=== PATIENT | male | born 1960 | race Caucasian/White ===

== ENCOUNTER → 2016-08-12 07:05 | Day surgery (SDC) | payer BC ==
--- NOTE | 2016-07-25 04:52 | HP ---
AMENDED REPORT FOR PHYSICIAN SIGNATURE - ESIGNED BEFORE ADJUSTMENT PREOPERATIVE HISTORY AND PHYSICAL: DATE OF SURGERY/ADMISSION: 08/12/16 DATE OF OFFICE VISIT/ENCOUNTER: 07/23/16 ATTENDING SURGEON: Cindy Edouard MD (dictated by OPAL Russo) PROCEDURE: Right long finger trigger finger release. CHIEF COMPLAINT: Right long finger triggering. HISTORY OF PRESENT ILLNESS: This is a 56-year-old male who is complaining of clicking, catching, and locking in his right middle finger that has been ongoing since summer. 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 He received a cortisone injection back in March 2016, which was helpful but recently has worn off. He is interested is pursuing surgical intervention at this time. PAST MEDICAL HISTORY: Pre-diabetes. PAST SURGICAL HISTORY: Oral surgery. MEDICATIONS: None. ALLERGIES: PENICILLIN causes hives. FAMILY MEDICAL HISTORY: Significant for lung disease. 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 He reports being a smoker; however, he is currently in the process of trying to quit. He says he has been 17 days without a cigarette; prior to that , he smoked a pack per day for the past 42 years. He does admit to smoking marijuana on occasion, and also reports alcohol intake approximately 6 pack per week. REVIEW OF SYSTEMS: General: Negative for fevers, chills, or night sweats. No known anesthesia problems. HEENT: Negative for headache, lightheadedness, or syncopal episodes. Integumentary: Negative for abrasions, lesions, or open wounds. Cardiothoracic: Negative for chest pain, palpitations, or edema. Negative for hypertension. Pulmonary: Negative for shortness of breath with exertion, chronic cough, or COPD. GI: Negative for nausea, vomiting, diarrhea , constipation, or GERD. : Negative for nocturia, urinary frequency, urgency , history of UTIs, or kidney problems. Musculoskeletal: Positive for current complaints. Negative for chronic or intermittent back pain or history of fractures. Neurological: Negative for paresthesias, numbness, history of seizures, stroke, or epilepsy. Endocrine: Positive for pre-diabetes, negative for thyroid issues. Hematologic: Negative for easy bruising, anemia, excessive bleeding, or history of DVT. Infectious Disease: Negative for history of MRSA, hepatitis C, or HIV. PHYSICAL EXAMINATION GENERAL: Well-developed, well-nourished, 56-year-old male in no acute distress. VITAL SIGNS: Height 5 feet 9 inches, weight 161 pounds, pulse rate 64, blood pressure 118/76. HEENT: Normocephalic, atraumatic. Pupils are equal, round, and reactive to light and accommodation. Extraocular movements are intact. NECK: Supple. No palpable lymph nodes. Throat is clear. CARDIOTHORACIC: Regular rate and rhythm. S1, S2. No murmurs, rubs, or gallops. No edema. PULMONARY: Lungs are clear to auscultation bilaterally. No wheezes, rales, or rhonchi. ABDOMEN: Positive bowel sounds, soft, and nontender. NEUROLOGIC: Alert and oriented x3. Cranial nerves II through XII are intact. Sensation to intact to light touch. MUSCULOSKELETAL: On exam of his right middle finger, there is tenderness to palpation at the A1 cesar. He has active triggering with flexion and extension. His range of motion is not restricted. Neurovascular function is intact. IMPRESSION: Right middle finger trigger finger. PLAN: The patient is scheduled to undergo a right long finger trigger finger release with Dr. Edouard on 08/12/16. He will return to the office 10 to 14 days postoperatively for followup and suture removal. A prescription for [place] was e- scribed to the patient's pharmacy for postoperative pain management. OPAL RUSSO [id number]/[facility] #: [id number] [facility]
[~2016-08-12 07:05] MED LIST: Buffered Lidocaine 1% SYR 3ML* 3 ML/SYR SYRINGE INTRADERM ONE; Buffered Lidocaine 1% SYR 3ML* 3 ML/SYR SYRINGE ONE; Lidocaine 1% INJ* 10 MG/ML 30 ML SDV ONE; Midazolam* 1 MG/ML 2 ML VIAL (2 MG) ONE; fentaNYL* 50 MCG/ML 2 ML VIAL (100 MCG VIAL) ONE
[2016-08-12 09:53] VITALS: BP 127/71
--- NOTE | 2016-08-13 00:07 | OP ---
DATE OF OPERATION: 08/12/16 [facility] DATE OF : 60 SURGEON: Dr. Edouard LABOR RELATIONS CONSULTANT: OPAL Russo. ANESTHESIOLOGIST: Mike White DO ANESTHESIA: Local MAC. PRE-OP DIAGNOSIS: Long finger trigger, right hand. POST- OP DIAGNOSIS: Long finger trigger, right hand. OPERATIVE PROCEDURE: Right long finger trigger release. ESTIMATED BLOOD LOSS: Zero. TOURNIQUET TIME: About 10 minutes. INDICATION FOR PROCEDURE: Omero is a 56-year-old male with locking and triggering of his right long finger. He has failed conservative treatment. He presents now for trigger finger release. DESCRIPTION OF PROCEDURE: The patient was brought to the operating room, was given a sedation anesthetic and a local infiltration of 10 cc of 1% plain lidocaine in the palm of his right hand. The skin of his right hand and forearm was prepped and draped in the usual sterile fashion. The hand and forearm were exsanguinated and the tourniquet elevated to 250 mmHg. A transverse incision was made centered over the A1 cesar of the right long finger. We dissected through the subcutaneous tissue down to the cesar, which was incised longitudinally, completely releasing the flexor tendons, which were in good condition with some mild tenosynovitis. The wound was irrigated and the skin edges reapproximated with 4-0 nylon suture. The wound was dressed with Xeroform, 4x4, Webril, and an Michael wrap. The patient tolerated the procedure well and was brought to the recovery room in good condition. [id number]/[facility] #: [id number] MTDD
== END | disposition home or self-care (01) ==
LOC: OREAST 07:05
PROVIDERS: ATTEND Orthopaedic Surgery
DX: M65.331 Trigger finger, right middle finger (principal); Z88.0 Allergy status to penicillin; Z79.82 Long term (current) use of aspirin; Z79.891 Long term (current) use of opiate analgesic; Z87.891 Personal history of nicotine dependence
CPT/HCPCS: J2250; J3010

== ENCOUNTER → 2019-09-08 05:37 | Emergency (ER) | payer BC ==
[~2019-09-08 05:37] MED LIST changes: -Buffered Lidocaine 1% SYR 3ML* 3 ML/SYR SYRINGE INTRADERM ONE; -Buffered Lidocaine 1% SYR 3ML* 3 ML/SYR SYRINGE ONE; +Indomethacin CAP* 25 MG CAP PO ONE; -Lidocaine 1% INJ* 10 MG/ML 30 ML SDV ONE; -Midazolam* 1 MG/ML 2 ML VIAL (2 MG) ONE; -fentaNYL* 50 MCG/ML 2 ML VIAL (100 MCG VIAL) ONE
--- NOTE | 2019-09-08 06:13 | ED ---
Lower Extremity - HPI Summary HPI Summary: Pt. is a 59 y.o male who presents to the ER for pain and swelling to right great toe that started today. Pt. denies any injuries or falls. Pt. states he has a hx of gout and symptoms are the same today. Pt. states he is usually treated with indomethacin and symptoms resolve. Pt. otherwise denies fever, chills, wounds, injury. Past hx of DM. Sxs are mild in severity. Touching area makes sxs worse. Rest improves sxs. Denies change in diet. - History of Current Complaint Chief Complaint: EDExtremityLower Stated Complaint: GOUT PER PT Time Seen by Provider: 09/08/19 05:53 Hx Obtained From: Patient Pain Intensity: 6 - Allergies/Home Medications Allergies/Adverse Reactions: Allergies Allergy/AdvReac Type Severity Reaction Status Date / Time MS Penicillins [Penicillins] Allergy Severe Rash Verified 09/08/19 05:40 ENVIRONMENTAL Allergy Intermediate STUFFINESS Uncoded 09/08/19 05:40 PMH/Surg Hx/FS Hx/Imm Hx Previously Healthy: Yes Endocrine/Hematology History: Reports: Hx Diabetes - Pre-diabetic a1c 6.5 Denies: Hx Thyroid Disease Cardiovascular History: Denies: Hx Hypertension Respiratory History: Denies: Hx Asthma, Hx Chronic Obstructive Pulmonary Disease (COPD) GI History: Denies: Hx Ulcer Sensory History: Reports: Hx Contacts or Glasses Denies: Hx Hearing Aid Opthamlomology History: Reports: Hx Contacts or Glasses Neurological History: Reports: Other Neuro Impairments/Disorders - HX GOUT - Cancer History Hx Chemotherapy: No - Surgical History Surgery Procedure, Year, and Place: SURGICAL REMOVED TEETH Hx Anesthesia Reactions: No Infectious Disease History: No Infectious Disease History: Denies: Hx Clostridium Difficile, Hx Hepatitis, Hx Human Immunodeficiency Virus (HIV), Hx of Known/Suspected MRSA, Hx Shingles, Hx Tuberculosis, Hx Known/ Suspected VRE, Hx Known/Suspected VRSA, History Other Infectious Disease, Traveled Outside the [place] in Last 30 Days - Family History Known Family History: Positive: Non-Contributory - Social History Occupation: Employed Full-time Lives: With Family Alcohol Use: Weekly Alcohol Amount: 6 pk a week Substance Use Type: Reports: Marijuana Substance Use Comment - Amount & Last Used: occassional Hx Tobacco Use: Yes Smoking Status (MU): Former Smoker Type: Cigarettes Amount Used/How Often: 1/2 PPD Length of Time of Smoking/Using Tobacco: 35+ years Review of Systems Constitutional: Negative Negative: Fever Positive: Other - Pain and swlling to right great toe Skin: Negative All Other Systems Reviewed And Are Negative: Yes Physical Exam Triage Information Reviewed: Yes Vital Signs On Initial Exam: Initial Vitals Temp Pulse Resp BP Pulse Ox 96.1 F 67 16 171/82 98 09/08/19 05:39 09/08/19 05:39 09/08/19 05:39 09/08/19 05:39 09/08/19 05:39 Vital Signs Reviewed: Yes Appearance: Positive: Well-Appearing - Pt. lying in bed in NAD. Skin: Positive: Warm, Dry Head/Face: Positive: Normal Head/Face Inspection Eyes: Positive: Normal, EOMI Neck: Positive: Supple Musculoskeletal: Positive: Other - Edema and pain noted over right great toe. No wounds to LE. Neurological: Positive: Normal, CN Intact II-III Procedures - Sedation Patient Received Moderate/Deep Sedation with Procedure: No Diagnostics - Vital Signs Vital Signs Temp Pulse Resp BP Pulse Ox 09/08/19 05:39 96.1 F 67 16 171/82 98 - Laboratory Lab Statement: Any lab studies that have been ordered have been reviewed, and results considered in the medical decision making process. Lower Extremity Course/Dx - Course Course Of Treatment: Pt. with pain and swelling to right great toe. Afebrile. Will tx for suspect gout with indomethacin given hx. Instructed on diet restrictions. Will f.u with PCP in 2-3 days and return to ER if sxs change or worsen. - Diagnoses Differential Diagnosis/HQI/PQRI: Positive: Bursitis, Cellulitis, Contusion, Fracture (Closed), Gout Provider Diagnoses: Gout attack Discharge ED - Sign-Out/Discharge Documenting (check all that apply): Patient Departure - Discharge Plan Condition: Good Disposition: HOME Prescriptions: Indomethacin 25 mg PO TID #15 capsule Patient Education Materials: Low Purine Diet (ED), Gout (ED) Forms: *Work Release Referrals: Tricia Musa MD [Primary Care Provider] - Additional Instructions: Follow up with PCP in 2-3 days if symptoms persist Take medication as directed Review hand out on what foods to avoid Return to ER if symptoms change or worsen - Billing Disposition and Condition Condition: GOOD Disposition: Home
[2019-09-08 06:27] VITALS: BP 0/0
== END | disposition home or self-care (01) ==
LOC: ED 05:37
DX: M10.9 Gout, unspecified (principal); Z87.891 Personal history of nicotine dependence; Z88.0 Allergy status to penicillin
CPT/HCPCS: 99282; A9270-GY